=== PATIENT | male | born 1945 | race Caucasian/White ===

== ENCOUNTER 2016-10-29 22:35 | Inpatient (IN) | payer OTHER ==
--- NOTE | ~2016-10-29 | CT57 ---
[facility] A Service of [facility] RADIOLOGY TEXT RESULTS PATIENT: NEHA ORO SR LOCATION: [place] [address] : 43 UNIT #: [id number] AGE: [address]: Romeo Valdovinos MD SEX: M ORDER DR: [id number] [facility] [address]. [place], [place] [address] [id number] I MR#: [id number] Acc #: [id number] NAME: NEHA ORO SR : 1945 SEX: M STUDY DATE/TIME: 10/31/2016 16:24 UNIT: [facility] ROOM: [facility] STUDY DESCRIPTION: CT Chest Wo Cont Attending Physician: Karina Wu M.D. Ordering Physician: Shemar Guerrero M.D. Primary Care Physician: Karina Wu M.D. MEDICAL IMAGING REPORT This report is preliminary unless electronic signature is present EXAM CT of the chest without contrast INDICATIONS Fever since October 28, shortness of breath, lethargy and pneumonia. TECHNIQUE CT of the chest was performed without contrast. Coronal and sagittal reformatted images were obtained. This CT exam was performed with one or more of the following radiation dose reduction techniques: Automatic exposure control, adjustment of mA and/or kV according to patient size, and iterative reconstruction. No comparisons. FINDINGS There is airspace consolidation within the left lower lobe most consistent with pneumonia. There is very mild atelectasis in the base of the right lower lobe. Trace pleural fluid bilaterally. Elevation of the left hemidiaphragm. There is no suspicious lymphadenopathy. Limited imaging of the upper abdomen demonstrates a gastrostomy tube and previous cholecystectomy. The bone windows are unremarkable. IMPRESSION 1. Left lower lobe consolidation consistent with patient's history of pneumonia. 2. Additional findings as described. Dictated by... Ranjan Kumar M.D. THIS IS AN ELECTRONICALLY VERIFIED REPORT Ranjan Kumar M.D. at 11/02/2016 5:13 PM ARS/psc [facility] A Service of [facility] RADIOLOGY TEXT RESULTS PATIENT: NEHA ORO SR LOCATION: [facility] 55- : 43 UNIT #: [id number] AGE: [address]: Romeo Valdovinos MD SEX: M ORDER DR: TD: 10/31/2016 21:02 JOB #: [id number] MEDICAL IMAGING REPORT Page 1 of 1 COPY
--- NOTE | ~2016-10-29 | CO ---
Unit #: [id number] #: [id number] Patient: NEHA ORO SR [id number] [address] [address] [id number] I MR#: [id number] NAME: NEHA ORO SR ROOM: [facility] Age: 70 Sex: M Admission Date: 10/30/2016 : 1945 Attending Physician: Karina Wu M.D. Primary Care Physician: Karina Wu M.D. Consultation Date: 10/30/2016 CONSULTATION REPORT REASON FOR CONSULT Hypoxia and pneumonia. HISTORY OF PRESENT ILLNESS This is a 70-year-old male with a past medical history significant for Parkinson disease, dementia, diabetes type 2, hypertension, and hyperlipidemia, who presented to the emergency room as a transfer from a intermediate for evaluation of hypoxia and low-grade fever. The stated that a week ago patient started spiking some low-grade fever which she reported to the intermediate staff, but she was told that the room temperature was high. Later on, patient continued to have a low-grade fever, so he finally had a chest x-ray which was reportedly normal. Yesterday, patient was noted to be hypoxic and having fever again, so he was transferred to our facility for further evaluation and management. Per , also his feeding tube has been nasty looking and needed to be changed anyway in a couple of weeks. No nausea, vomiting, or diarrhea. His lower extremity have been significantly edematous. REVIEW OF SYSTEMS Unable to obtain from the patient as he is demented. PAST MEDICAL HISTORY 1. Parkinson disease. 2. Dementia. 3. Type 2 diabetes. 4. Hypertension. 5. Hyperlipidemia. 6. Depression. 7. Osteoarthritis. 8. Immobility. PAST SURGICAL HISTORY 1. Cataract. 2. Knee surgery. 3. Feeding tube placement. SOCIAL HISTORY Patient is a long-term intermediate resident. No history of alcohol, drug abuse, or smoking. FAMILY HISTORY Noncontributory. Unit #: [id number] #: [id number] Patient: NEHA ORO SR ALLERGIES Penicillin but family unsure what kind of allergy exactly. PHYSICAL EXAMINATION GENERAL: Patient is demented. VITAL SIGNS: Blood pressure 124/62, respiratory rate 18, and O2 saturation 98% on 3 liters nasal cannula. HEENT: Atraumatic, normocephalic. PERRLA. EOMI. NECK: Supple. No JVD. No lymphadenopathy. CHEST: Decreased breath sounds bilaterally with fine rhonchi at the bases. HEART: S1 and S2. No murmur, gallops, or rubs. ABDOMEN: Soft, nontender. Bowel sounds are positive. No hepatosplenomegaly. EXTREMITIES: With +2 edema. CENTRAL NERVOUS SYSTEM: Awake, alert, oriented x0. SKIN: No rashes. DIAGNOSTIC STUDIES LABORATORY: Creatinine 1.5 and sodium 134. White blood count 17. IMAGING: Chest x-ray is consistent with what looks like aspiration pneumonia. ASSESSMENT 1. Acute hypoxic respiratory failure. 2. Aspiration pneumonia. 3. Diastolic congestive heart failure exacerbation. 4. Acute kidney injury. 5. Dementia. PLAN 1. Patient's oxygen will be titrated down/off to baseline which is room air as tolerated. 2. Continue patient on current antibiotics which are vancomycin and Zosyn but hopefully will deescalate soon once cultures are final. 3. Will discontinue IV fluid and start patient on IV Bumex. 4. Strict intake and output. 5. Hold lisinopril due to acute kidney injury. 6. DVT prophylaxis. I would like to thank Dr. Wu for allowing me to be part of this patient's care. Dictated by... Enrique Palma TD: 10/30/2016 19:56 JOB #: [id number] Unit #: [id number] #: [id number] Patient: SHORTY LANCE,NEHA Mejia CONSULTATION REPORT Page 1 of 1 X RODOLFO MENDIETA MD CONSULTATION REPORT
--- NOTE | ~2016-10-29 | EKG ---
PATIENT: NEHA ORO UNIT #: [id number] Ventricular Rate: 109 BPM Atrial Rate: 241 BPM QRS Duration: 90 ms Q-T Interval: 358 ms QTC Calculation(Bezet): 482 ms Calculated R [place]: 31 degrees Calculated T [place]: 45 degrees Diagnosis Line: Atrial flutter Diagnosis Line: Abnormal ECG Diagnosis Line: Diagnosis Line: Confirmed by MELISSA ELIZONDO MD ([id number]) on 10/30/2016 Diagnosis Line: 4:10:26 PM INTERPRETING MD: MIKHAIL NEGRO
--- NOTE | ~2016-10-29 | CR72 ---
[facility] A Service of [facility] RADIOLOGY TEXT RESULTS PATIENT: NEHA ORO SR LOCATION: [facility] : 43 UNIT #: [id number] AGE: [address]: Romeo Valdovinos MD SEX: M ORDER DR: [id number] [facility] [address]. [place], [place] [address] [id number] MR#: [id number] Acc #: [id number] NAME: NEHA ORO SR : 1945 SEX: M STUDY DATE/TIME: 10/29/2016 23:48 UNIT: [facility] ROOM: STUDY DESCRIPTION: CR Chest Single View Portable Attending Physician: Landry Saucedo M.D. Ordering Physician: Landry Saucedo M.D. Primary Care Physician: Karina Wu M.D. MEDICAL IMAGING REPORT This report is preliminary unless electronic signature is present EXAM Portable chest HISTORY Shortness of air, fever, hypertension onset today. COMPARISON 12/10/2015 FINDINGS Portable view of the chest demonstrates coarse reticulonodular infiltrates which may represent chronic diffuse lung disease though a superimposed pneumonitis not excluded. Left-sided volume loss with elevation of the left hemidiaphragm left basilar atelectasis though this appears chronic. No sizeable effusions. No dense consolidation. Heart, mediastinum remarkable for aortic atherosclerotic changes. No pneumothorax. Overall there is apparent diffuse lung disease with a questionable acute pneumonitis or interstitial process which could reflect edema or infection. Dictated by... [place] Kumar M.D. THIS IS AN ELECTRONICALLY VERIFIED REPORT [place] Kumar M.D. at 10/30/2016 5:56 AM DALIA/yg TD: 10/30/2016 02:29 JOB #: [id number] MEDICAL IMAGING REPORT Page 1 of 1 COPY
--- NOTE | ~2016-10-29 | CO ---
Unit #: [id number] #: [id number] Patient: NEHA ORO SR [id number] [address] [place], [place] [address] [id number] Shobha MR#: [id number] NAME: NEHA ORO SR ROOM: 55 Age: 70 Sex: M Admission Date: 10/30/2016 : 1945 Attending Physician: Karina Wu M.D. Primary Care Physician: Karina Wu M.D. Consultation Date: 10/31/2016 CONSULTATION REPORT CHIEF COMPLAINT Family issues with PEG tube. HISTORY OF PRESENT ILLNESS This is a 70-year-old gentleman who has advanced Parkinson with dementia who is admitted for treatment of pneumonia. He is not able to provide any history. Apparently he underwent PEG tube placement in November of last year. He has had the original PEG, and the does not like the way the PEG tube looks. She complains of a dark discoloration on the inside of the PEG tube, as well as the length of the PEG tube. She says that it will get down into his "private area." The tube has been functioning fine, and he still uses it for medications and some supplemental feeds. PAST SURGICAL HISTORY He has had a cholecystectomy and eye surgery. PAST MEDICAL HISTORY 1. Diabetes. 2. History of hypertension. 3. Parkinson with dementia. MEDICATIONS He is on numerous medications. ALLERGIES Rivastigmine (Exelon). SOCIAL HISTORY He denies any tobacco or alcohol use. FAMILY HISTORY/REVIEW OF SYSTEMS I was unable to get a full family history or review of systems because of his dementia. PHYSICAL EXAM VITAL SIGNS: Temperature is 97.5. Heart rate is 80, respiratory rate 16. Blood pressure is 152/90. GENERAL: He is in no acute distress. HEENT: His pupils are equal and reactive to light and accommodation. NECK: Neck is without masses or bruits. LUNGS: Lungs show good breath sounds bilaterally with some scattered rhonchi. CARDIOVASCULAR: Cardiac exam shows regular rate and rhythm without murmur. Unit #: [id number] #: [id number] Patient: NEHA ORO SR ABDOMEN: Abdomen is soft, nondistended, and he has a PEG tube in place. There is no fracturing of the tubing and no skin breakdown around the exit site of the PEG tube. EXTREMITIES: The extremities are without edema or cyanosis. NEUROLOGIC EXAM: He is resting comfortably, and he does move all 4 extremities. DIAGNOSTIC STUDIES LABORATORY: His white blood count is 10,000. Hemoglobin is 11.7. OVERALL IMPRESSION This is a 70-year-old gentleman who is admitted with pneumonia. He has a fully functional PEG tube that is working fine. Family is going to weigh the risks and benefits of exchanging the tube. I did explain that there is a possibility that replacing the tube could require him to have a repeat upper endoscopy with PEG tube or an open G-tube placement. I would probably recommend doing this in the radiology department over a wire, and then they can confirm placement with contrast. Family is going to consider all this and let us know how they want us to proceed. Dictated by... Asim Valdez III, M.D. VCL/gifty TD: 10/31/2016 08:18 JOB #: [id number] CONSULTATION REPORT Page 1 of 1 X Asim Valdez III, MD CONSULTATION REPORT
--- NOTE | ~2016-10-29 | DS ---
Unit #: [id number] #: [id number] Patient: NEHA ORO SR [id number] [address] [place], [place] [address] [id number] I MR#: [id number] NAME: NEHA ORO SR ROOM: [facility] Age: 70 Sex: M Admission Date: 10/30/2016 : 1945 Discharge Date: 11/02/2016 Attending Physician: Romeo Valdovinos M.D. Primary Care Physician: Karina Wu M.D. DISCHARGE SUMMARY DISCHARGE DIAGNOSES 1. Severe sepsis. 2. Aspiration pneumonia. 3. Parkinson. 4. Diabetes. 5. Hypertension. 6. Acute hypoxic respiratory failure. 7. Acute on chronic diastolic heart failure. 8. Acute kidney injury present on admission. HOSPITAL COURSE The patient is a 70-year-old male with Parkinson who presented to [facility] Emergency Department after he was noted to be short of breath at the senior care. In the ED, he was initially saturating in the 80s on room air and required two liters nasal cannula to maintain saturations greater than 90. The patient was thought to have an aspiration pneumonia and was started on Zosyn for this. Additionally, he was noted to have some worsening of heart failure and was started on IV diuretics. There was also some question of a dysfunctional PEG tube. However, it was evaluated by Surgery and thought to be well functioning and in no need of service. It was apparently shortened somewhat but was otherwise left unmolested. At this time, the patient is saturating in the 90s on room air. He has diuresed well and his procalcitonin levels are normal. As a result, the patient is being discharged back to the senior care. DISCHARGE MEDICATIONS 1. Acetaminophen 500 mg q.6 hours p.r.n. 2. Depakote Sprinkles 125 mg b.i.d. 3. Celexa 20 mg daily. 4. Nuplazid 34 mg daily. 5. Klonopin 0.5 mg at bedtime. 6. Metoprolol tartrate 25 mg p.o. b.i.d. 7. Colace 100 mg daily. 8. Milk of Magnesia as needed. 9. Lasix 40 mg b.i.d. 10. Guaifenesin 100 mL q.6 as needed. 11. Lisinopril 20 mg daily. 12. NovoLog FlexPen 18 units subcutaneous a.c. and 20 units b.i.d. 13. Levemir 20 units subcutaneous b.i.d. 14. Carbidopa and levodopa ER 25/100, at 1 t.i.d. Unit #: [id number] #: [id number] Patient: ORO SR,NEHA Mejia 15. Multivitamin daily. 16. Melatonin at bedtime. 17. Omeprazole 20 mg daily. 18. Vitamin B12 at 500 mcg daily. DISPOSITION Patient is being discharged back to the senior care. FOLLOWUP Patient should follow up with his primary care provider at his next regularly scheduled visit. Dictated by... Romeo Valdovinos M.D. CHASTITY/karie TD: 11/02/2016 17:09 JOB #: [id number] DISCHARGE SUMMARY Page 1 of 1 X Romeo Valdovinos MD X DISCHARGE SUMMARY
--- NOTE | ~2016-10-29 | HP ---
Unit #: [id number] #: [id number] Patient: NEHA ORO SR [id number] [address] [address] [id number] I MR#: [id number] NAME: NEHA ORO SR ROOM: 55 Age: 70 Sex: M Admission Date: 10/30/2016 : 1945 Attending Physician: Karina Wu M.D. Primary Care Physician: Karina Wu M.D. HISTORY AND PHYSICAL REASON FOR ADMISSION Pneumonia. HISTORY OF PRESENT ILLNESS The patient is a 70-year-old patient who was transferred from [facility] for shortness of air and fever. The patient is pleasantly confused and lethargic and not able to provide a history. Therefore, history was obtained from the records and facility. The patient apparently was in his usual state of health when he was in chest congestion for the last two to three days. The patient had a chest x-ray done in the facility, which did not reveal pneumonia, but the patient was started on Augmentin for acute bronchitis. The patient's condition did not improve and deteriorated. Therefore, he was transferred to the hospital for decreased alertness, decreased oxygen saturation and tachycardia. In the emergency room the patient was diagnosed with pneumonia and dehydration and was given IV fluids and IV antibiotics and was admitted to the hospital. The patient is lying in bed and is lethargic, but opens eyes. He is not able to provide history. PAST MEDICAL HISTORY 1. The patient has a history of Parkinson disease. 2. Dysphagia, status post PEG tube placement. 3. PEG tube placement in 11/2015. 4. Dementia. 5. Hypertension. 6. Hyperlipidemia. 7. Depression. 8. Degenerative joint disease. PAST SURGICAL HISTORY 1. Cholecystectomy. 2. Eye surgery. SOCIAL HISTORY The patient is . Has remote history of cigarette smoking. There is no current drinking. FAMILY HISTORY Positive for Parkinson disease and chronic obstructive pulmonary disease. ALLERGIES The patient is allergic to Exelon. HOME MEDICATIONS Unit #: [id number] #: [id number] Patient: NEHA ORO SR 1. Prilosec 20 mg p.o. daily. 2. Augmentin 500 mg b.i.d. 3. Carbidopa levodopa 25/100 one tablet p.o. t.i.d. 4. Lasix 40 mg daily. 5. Nuplazid 2 tablet p.o. daily. 6. Multivitamin 1 tablet p.o. daily. 7. Celexa daily. 8. Colace 100 mg daily. 9. Lisinopril 20 mg daily. 10. Metoprolol 25 mg b.i.d. 11. Depakote 125 mg p.o. b.i.d. 12. Vitamin B12 500 mcg daily. 13. Melatonin at bedtime. 14. Klonopin 0.5 mg p.o. at nighttime. 15. Glucagon p.r.n. 16. Tylenol p.r.n. 17. Milk of Magnesia p.r.n. 18. Klonopin p.r.n. 19. Levemir 20 units subcutaneous b.i.d. REVIEW OF SYSTEMS Unable to do complete review of systems. PHYSICAL EXAMINATION GENERAL: The patient is lying in bed, lethargic, but opens eyes. VITALS: Temperature 99.9, pulse 89 per minute, respiratory rate 18 per minute, blood pressure 119/61. HEENT: No conjunctival congestion. Sclerae nonicteric. NECK: Supple. Trachea central LUNGS: Decreased breath sounds bilaterally. There are a few crackles present at bases. HEART: Regular rate and rhythm. S1 and S2. ABDOMEN: Soft, nontender, bowel sounds present. EXTREMITIES: Trace pedal edema. NEUROLOGIC: The patient has increased rigidity. Does not follow commands. PSYCHIATRIC: The patient has a flat affect and is confused. Not very verbal. DIAGNOSTIC STUDIES IMAGING: Chest x-ray revealed left-sided volume loss with elevation of left hemidiaphragm with left basilar atelectasis which seems chronic. There was apparent diffuse lung disease with a questionable acute pneumonitis or interstitial process. LABORATORY: On admission, the patient's creatinine was 1.1, sodium 136, potassium 3.5. BUN 31. White blood cell count 15.5, hemoglobin 11.9, platelet count 219. Lactic acid level was 1.8 on admission. CARDIOVASCULAR: EKG revealed atrial fibrillation. ASSESSMENT/PLAN The patient is a 70-year-old who was admitted to the hospital from rehab center with possible pneumonia. Details are as per admission history and physical. Unit #: [id number] #: [id number] Patient: SHORTY LANCE,NEHA L Dictated by Enrique [place]/timothy TD: 10/30/2016 10:56 JOB #: [id number] HISTORY AND PHYSICAL Page 1 of 1 X Karina Wu MD HISTORY AND PHYSICAL
[~2016-10-29 22:35] MED LIST: (NONE)500 MCG PO; ACETAMINOPHEN500 M5 PO; CARBIDOPA-LEVO1 TA1 PO; CELEXA20 MG PO; CENTRUM PO; CLARITIN10 M3 PO; CLONAZEPAM0.5 MG PO; DEPAKOTE ER250 MG PO; DEPAKOTE PO; DESYREL50 MG PO; DIVALPROEX SOD125 MG PO; DOCUSATE SODIU100 MG PO; GLIPIZIDE5 MG/BOTT1 PO; GLUCAGEN1 MG/KIT IJ; GLUCOTROL PO; GUAIFENESIN DM118 ML PO; KLONOPIN PO; KLONOPIN0.5 MG PO; KOMBIGLYZE XR1 EAC2 PO; LANTUS SOLOSTAR3 ML SUBQ; LANTUS100 UNITS/ SUBQ; LASIX PO; LASIX20 MG PO; LEXAPRO5 MG PO; LISINOPRIL20 MG PO; LOPERAMIDE HCL2 M1 PO; METOPROLOL TART25 MG PO; MILK OF MAGNESIA PO; MULTIPLE VITAMI1 T12 PO; MYLANTA GAS80 M2 PO; NAPROSYN500 MG PO; NOVOLOG FL100 UNIT/1 SUBQ; NOVOLOG100 U/M1 SUBQ; PRAVASTATIN SOD40 MG PO; PROPRANOLOL PO; ROBAFEN DM COU118 ML PO; SINEMET CR 50/21 TAB PO; SINEMET-25/1001 TAB PO; TOUJEO SOL300 UNIT/1 SUBQ; VIT B-12 PO
[2016-10-29 23:14] LABS: ARTERIAL BLD GAS O2 SATURATION 98.2 % (90.0-100.0); ARTERIAL BLOOD GAS CARBOXY HB 0.5 %sat (0.0-9.0); ARTERIAL BLOOD GAS HCO3 26.9 mmol/L; ARTERIAL BLOOD GAS MET HB 0.9 %sat (0.0-2.0); ARTERIAL BLOOD GAS PCO2 38.6 mmHg (35.0-45.0); ARTERIAL BLOOD GAS pH 7.452 (7.350-7.450)
[2016-10-29 23:15] LABS: ARTERIAL BLOOD GAS ALLEN TEST NORMAL; ARTERIAL BLOOD GAS ART SITE LEFT RADIAL; ARTERIAL BLOOD GAS DELIVERY NON REBREATHER MASK; ARTERIAL DRAW? YES
[2016-10-29 23:17] LABS: POC - TROPONIN <0.05 ng/mL (<=0.05)
[2016-10-29 23:46] LABS: URINE SOURCE CLEAN CATCH
[2016-10-29 23:54] LABS: URINE APPEARANCE CLOUDY; URINE BILIRUBIN NEG (NEG); URINE BLOOD NEG (NEG); URINE COLOR YELLOW; URINE GLUCOSE NEG (NEG); URINE KETONE TRACE (NEG); URINE LEUKOCYTE ESTERASE 1+ (NEG); URINE NITRATE NEG (NEG); URINE PROTEIN NEG (NEG); URINE SPECIFIC GRAVITY 1.016 (1.003-1.035)
[2016-10-29 23:56] LABS: CULTURE INDICATED? YES; URINE BACTERIA AUWI NEG (NEGATIVE); URINE SQUAMOUS EPITHELIAL CELL FEW /[HPF]
[2016-10-30 00:07] LABS: URINE AMORPHOUS SEDIMENT AMORP URATES
[2016-10-30 02:25] LABS: BASOPHIL# 0.1 X10e3 (0-0.3); BASOPHIL% 0.8 % (0-2.5); EOSINOPHIL% 0.1 % (0.0-7.0); HEMATOCRIT 34.3 % (38.0-50.0); HEMOGLOBIN 11.1 gm/dL (13.0-16.0); LYMPHOCYTE# 1.3 X10e3 (1.0-3.5); LYMPHOCYTE% 7.5 % (17.0-45.0); MEAN CELL VOLUME 84.6 FL (83-96); MEAN CORPUSCULAR HEMOGLOBIN 27.3 PG (28-34); MEAN CORPUSCULAR HGB CONC 32.3 g/dL (30-36); MEAN PLATELET VOLUME 8.5 FL (6.5-11.5); MONOCYTE# 1.9 X10e3 (0-1.0); MONOCYTE% 11.3 % (3.0-12.0); NEUTROPHIL# 13.7 X10e3 (1.5-7.1); NEUTROPHIL% 80.3 % (40-75); PLATELET COUNT 227 X10e3 (140-420); RED BLOOD COUNT 4.05 X10e (3.90-5.60); RED CELL DISTRIBUTION WIDTH 15.4 % (11.0-15.5); WHITE BLOOD COUNT 17.1 X10e3 (4.0-10.5)
[2016-10-30 02:26] LABS: ALBUMIN SERUM 2.9 g/dL (3.5-5.0); BILIRUBIN,TOTAL 0.5 mg/dL (0.2-2.0); BUN/CREATININE RATIO 26.66; CALCIUM SERUM 8.5 mg/dL (8.4-10.2); CREATININE SERUM 1.5 mg/dL (0.6-1.4); DIFF IND YES; GLOM FILT RATE Estimated 45.9 mL/min (>60); POTASSIUM 3.6 mmol/L (3.5-5.1); PROTEIN TOTAL SERUM 6.1 g/dL (6.0-8.3)
[2016-10-30] MEDS ORDERED: AUGMENTIN PO (02:26)
[2016-10-30] MEDS ORDERED: OMEPRAZOLE20 M1 PO (02:26)
[2016-10-30] MEDS ORDERED: CARBIDOPA-LEVO1 EAC3 PO (02:28)
[2016-10-30] MEDS ORDERED: FUROSEMIDE40 MG PO (02:28)
[2016-10-30] MEDS ORDERED: NUPLAZID17 MG (02:29)
[2016-10-30] MEDS ORDERED: MULTI VITAMIN1 EACH (02:30)
[2016-10-30] MEDS ORDERED: CELEXA20 M1 PO (02:30)
[2016-10-30] MEDS ORDERED: DOCUSATE SODIU100 MG PO (02:31)
[2016-10-30] MEDS ORDERED: LISINOPRIL20 MG PO (02:31)
[2016-10-30] MEDS ORDERED: METOPROLOL TAR25 MG PO (02:32)
[2016-10-30] MEDS ORDERED: DEPAKOTE SPRIN125 MG PO (02:32)
[2016-10-30] MEDS ORDERED: B-12500 MCG PO (02:33)
[2016-10-30] MEDS ORDERED: [UNRECOGNIZED DRUG - SUPPLY] (02:33)
[2016-10-30] MEDS ORDERED: MELATIN3 MG (02:34)
[2016-10-30] MEDS ORDERED: KLONOPIN0.5 MG PO (02:34)
[2016-10-30] MEDS ORDERED: GLUCAGEN1 MG (02:35)
[2016-10-30] MEDS ORDERED: ADULT WAL-100 MG/5 M PO (02:37)
[2016-10-30] MEDS ORDERED: MILK OF MAGNESIA (02:39)
[2016-10-30] MEDS ORDERED: MAPAP500 MG PO (02:39)
[2016-10-30] MEDS ORDERED: KLONOPIN PO (02:40)
[2016-10-30] MEDS ORDERED: LEVEMIR100 UNITS/ SUBQ (02:42)
[2016-10-30] MEDS ORDERED: NOVOLOG FL100 UNIT/1 SUBQ (02:42)
[2016-10-30 02:58] LABS: ANISOCYTOSIS MOD; OVALOCYTES PRESENT; PLATELET ESTIMATE NORMAL (NORMAL)
[2016-10-30 07:21] LABS: BASOPHIL% 0.2 % (0-2.5); DIFF IND NO; EOSINOPHIL# 0.1 X10e3 (0-0.7); EOSINOPHIL% 0.5 % (0.0-7.0); HEMATOCRIT 37.2 % (38.0-50.0); HEMOGLOBIN 11.9 gm/dL (13.0-16.0); LYMPHOCYTE# 2.1 X10e3 (1.0-3.5); LYMPHOCYTE% 13.7 % (17.0-45.0); MEAN CELL VOLUME 85.3 FL (83-96); MEAN CORPUSCULAR HEMOGLOBIN 27.4 PG (28-34); MEAN CORPUSCULAR HGB CONC 32.1 g/dL (30-36); MEAN PLATELET VOLUME 7.9 FL (6.5-11.5); MONOCYTE% 13.2 % (3.0-12.0); NEUTROPHIL# 11.3 X10e3 (1.5-7.1); NEUTROPHIL% 72.4 % (40-75); PLATELET COUNT 219 X10e3 (140-420); RED BLOOD COUNT 4.36 X10e (3.90-5.60); RED CELL DISTRIBUTION WIDTH 15.8 % (11.0-15.5); WHITE BLOOD COUNT 15.5 X10e3 (4.0-10.5)
[2016-10-30 07:39] LABS: BUN/CREATININE RATIO 28.18; CALCIUM SERUM 8.4 mg/dL (8.4-10.2); CREATININE SERUM 1.1 mg/dL (0.6-1.4); GLOM FILT RATE Estimated 66.7 mL/min (>60); POTASSIUM 3.5 mmol/L (3.5-5.1)
[2016-10-31 06:09] LABS: HEMATOCRIT 36.3 % (38.0-50.0); HEMOGLOBIN 11.7 gm/dL (13.0-16.0); MEAN CELL VOLUME 84.6 FL (83-96); MEAN CORPUSCULAR HEMOGLOBIN 27.3 PG (28-34); MEAN CORPUSCULAR HGB CONC 32.3 g/dL (30-36); MEAN PLATELET VOLUME 7.8 FL (6.5-11.5); RED BLOOD COUNT 4.29 X10e (3.90-5.60); RED CELL DISTRIBUTION WIDTH 15.8 % (11.0-15.5); WHITE BLOOD COUNT 10.4 X10e3 (4.0-10.5)
[2016-10-31 07:01] LABS: CALCIUM SERUM 8.7 mg/dL (8.4-10.2); CREATININE SERUM 0.8 mg/dL (0.6-1.4); GLOM FILT RATE Estimated 89.3 mL/min (>60); POTASSIUM 3.8 mmol/L (3.5-5.1)
[2016-11-02 07:57] LABS: HEMOGLOBIN 12.3 gm/dL (13.0-16.0); MEAN CELL VOLUME 84.7 FL (83-96); MEAN CORPUSCULAR HEMOGLOBIN 27.3 PG (28-34); MEAN CORPUSCULAR HGB CONC 32.3 g/dL (30-36); MEAN PLATELET VOLUME 7.5 FL (6.5-11.5); RED BLOOD COUNT 4.49 X10e (3.90-5.60); RED CELL DISTRIBUTION WIDTH 15.3 % (11.0-15.5); WHITE BLOOD COUNT 11.5 X10e3 (4.0-10.5)
[2016-11-02 08:29] LABS: ALBUMIN SERUM 2.9 g/dL (3.5-5.0); BILIRUBIN,TOTAL 0.3 mg/dL (0.2-2.0); BUN/CREATININE RATIO 18.57; CALCIUM SERUM 8.9 mg/dL (8.4-10.2); CREATININE SERUM 0.7 mg/dL (0.6-1.4); GLOM FILT RATE Estimated 94.3 mL/min (>60); POTASSIUM 3.3 mmol/L (3.5-5.1); PROTEIN TOTAL SERUM 6.2 g/dL (6.0-8.3)
== END 2016-11-03 12:07 | DRG 871 ==
LOC: CED 22:35 → C5B 10-30 02:57 → CEDOF 10-30 02:57 → C5B 10-30 03:12 → CED 10-30 03:12 → CEDOF 10-30 03:12 → C5B 10-30 07:42 → CEDOF 10-30 07:42 → C5B 11-01 07:21
PROVIDERS: Emergency Medicine; Internal Medicine
DX: A41.9 Sepsis, unspecified organism (principal); J69.0 Pneumonitis due to inhalation of food and vomit; J96.01 Acute respiratory failure with hypoxia; I50.33 Acute on chronic diastolic (congestive) heart failure; N17.9 Acute kidney failure, unspecified; R65.20 Severe sepsis without septic shock; G20 Parkinson's disease; F02.80 Dementia in other diseases classified elsewhere, unspecified severity, without behavioral disturbance, psychotic disturbance, mood disturbance, and anxiety; E11.9 Type 2 diabetes mellitus without complications; I10 Essential (primary) hypertension; E78.5 Hyperlipidemia, unspecified; Z90.49 Acquired absence of other specified parts of digestive tract; Z88.8 Allergy status to other drugs, medicaments and biological substances; Z66 Do not resuscitate; R13.11 Dysphagia, oral phase
CPT/HCPCS: 36600; 51702; 71010; 71250; 80048; 80053; 81003; 82308; 82553; 82803; 82947; 83605; 83735; 84484; 85025; 85027; 87040; 87086; 92526; 92610; 93005; 94640; 94760; 96361; 96365; 96367; 97163; 97167; 99291; G8978-GP; G8979-GP; G8980-GP; G8987-GO; G8988-GO; G8989-GO; G8996-GN; G8997-GN; G8998-GN; J1650; J1815; J2543; J3370